=== PATIENT | female | born 1950 | race Caucasian/White ===

== ENCOUNTER 2017-05-01 09:30 | Inpatient (IN) | payer OTHER ==
[2017-04-07 11:18] VITALS: BMI 34.0
--- NOTE | 2017-04-07 11:56 | PAT Medication Instructions ---
Service Date Apr 07, 2017. Current Home Medication List Albuterol Sulfate (Proair Respiclick), 2 PUFF INH Q4 PRN for SOB/Wheezing Alendronate/Cholecalciferol (Fosamax+D 70MG/2800 Iu), 1 TABLET PO WK Aspirin (Aspirin Ec), 81 MG PO QAM Calcium/Vitamin D (Os-Raymond 500 Plus D), 1 TAB PO QAM Fish Oil (Zoe-3), 1 CAP PO QAM Fluticasone Propionate (Nasal) (Flonase Allergy Relief), 1 SPRAY SERAFIN UD PRN for PRN Ntthiecmxam-Rzthnooroqy-Etq C- (Glucosamine Chondroitin), 1 CAP PO QAM Multivitamin (Multivitamin), 1 TAB PO QAM Vitamin E (E-400), 1 CAP PO QAM [Premarin Vaginal], 1 DOSE PV 3XWK Medication Instructions For Your Scheduled Surgery -Continue as directed: Alendronate/Cholecalciferol (Fosamax+D 70MG/2800 Iu), 1 TABLET PO WK - Hold the following medications 2 weeks prior to surgery: Vitamin E (E-400), 1 CAP PO QAM Jbiqklxdgjn-Aungkvsbhed-Iua C- (Glucosamine Chondroitin), 1 CAP PO QAM Fish Oil (Zoe-3), 1 CAP PO QAM - Hold the following medications 24 hours prior to surgery: [Premarin Vaginal], 1 DOSE PV 3XWK - Hold the following medications the morning of surgery: Calcium/Vitamin D (Os-Raymond 500 Plus D), 1 TAB PO QAM Multivitamin (Multivitamin), 1 TAB PO QAM - Take the following medications the morning of surgery with a sip of water: Aspirin (Aspirin Ec), 81 MG PO QAM Fluticasone Propionate (Nasal) (Flonase Allergy Relief), 1 SPRAY SERAFIN UD PRN for PRN Albuterol Sulfate (Proair Respiclick), 2 PUFF INH Q4 PRN for SOB/Wheezing - Take the following medications as scheduled the night before surgery: Fluticasone Propionate (Nasal) (Flonase Allergy Relief), 1 SPRAY SERAFIN UD PRN for PRN Albuterol Sulfate (Proair Respiclick), 2 PUFF INH Q4 PRN for SOB/Wheezing If you have any questions please call us at [phone] or [phone] or [phone]
[2017-04-07 13:03] LABS: BASO % 0.4 %; BASO ABS # 0.02 K/uL (0-0.2); EOS % 2.9 %; EOS ABS # 0.13 K/uL (0-0.5); HEMATOCRIT 39.8 % (37-47); HEMOGLOBIN 14.1 g/dL (12.0-16.0); LYMPH % 31.6 %; LYMPH ABS # 1.42 K/uL (1.2-3.4); MEAN CELL VOLUME 88.6 fL (80-100); MEAN CORPUSCULAR HEMOGLOBIN 31.4 pg (25-34); MEAN CORPUSCULAR HGB CONC 35.4 g/dl (32-36); MEAN PLATELET VOLUME 9.8 fL (7.4-10.4); MONO % 8.7 %; MONO ABS # 0.39 K/uL (0.11-0.59); NEUT % 56.4 %; NEUT ABS # 2.53 K/uL (1.4-6.5); PLATELET COUNT 141 K/uL (130-400); RED CELL DISTRIBUTION WIDTH CV 12.7 % (11.5-14.5); WHITE BLOOD COUNT 4.49 K/uL (4.8-10.8)
[2017-04-07 13:21] LABS: PTT PATIENT 24.9 SECONDS (21.0-31.0)
[2017-04-07 13:29] LABS: HEMOGLOBIN A1C 5.6 % (4.5-5.6)
[2017-04-07 14:00] LABS: ALBUMIN 3.8 gm/dl (3.4-5.0); CALCIUM 9.7 mg/dl (8.5-10.1); CREATININE 0.85 mg/dl (0.60-1.20); POTASSIUM 4.2 mmol/L (3.5-5.1)
--- NOTE | 2017-04-28 08:59 | HISTORY & PHYSICAL EXAMINATION ---
DATE OF ADMISSION: 05/01/2017 CHIEF COMPLAINT: Right knee pain. HISTORY OF PRESENT ILLNESS: The patient is a 67-year-old female approximately 15 years status post right total knee arthroplasty by an outside physician. She presented to our office for evaluation of increasing right knee pain and disability. X-rays were suspicious for probable loosening, particularly of the femoral component. Blood work and a bone scan was ordered. The blood work was negative for infection. The bone scan is suggestive of aseptic loosening. She is now scheduled for revision right total knee arthroplasty. PAST MEDICAL HISTORY: Acid reflux. PAST SURGICAL HISTORY: Right knee as above, cholecystectomy, bilateral shoulder surgery, D&C, appendectomy. MEDICATIONS: Simvastatin 20 mg daily, Actonel 35 mg weekly, multivitamin daily, aspirin 81 mg daily, calcium plus D daily, Meloxicam 7.5 mg daily, Premarin 0.625 mg daily, glucosamine daily, probiotic daily, timolol maleate 0.5% eyedrops, fish oil 1000 mg daily, Betimol 0.5% ophthalmic solution both eyes once daily, Flagyl 500 mg q.8 hours. ALLERGIES: TRAMADOL, PROPOXYPHENE, SCALLOPS. SOCIAL HISTORY AND REVIEW OF SYSTEMS: Noncontributory. PHYSICAL EXAMINATION: GENERAL: Well-nourished, well-developed elderly female who appears stated age. HEENT: Normocephalic, atraumatic, extraocular movements intact, oropharynx pink and moist. NECK: Supple without adenopathy. LUNGS: Clear to auscultation bilaterally. HEART: Regular rate and rhythm. ABDOMEN: Soft, nontender, nondistended. EXTREMITIES: The upper extremities within normal limits. The right knee is neutrally aligned. She has a well-healed midline incision from her previous arthroplasty. Her range of motion is from 0-125 degrees. X-RAYS: X-rays were reviewed. She has DePuy type knee in place. It appears well aligned. There is a lucency about the femoral component, particularly on the lateral view. The patella is unresurfaced. ASSESSMENT: Aseptic loosening, right total knee arthroplasty. PLAN: Risks versus benefits were discussed. Consent was obtained. The patient's primary care physician is Dr. Ace from [place]. Will proceed with right knee revision total knee arthroplasty upon preoperative workup and medical clearance.
[~2017-05-01] VITALS: Ht 165.1 cm; Wt 93.8 kg
[2017-05-01] VITALS (8 sets, daily range): BP systolic 132–173; BP diastolic 56–85; PULSE 44–58; TEMP 36.3–36.8; O2SAT 95–100; Ht 165.1 cm; Wt 93.8 kg
[2017-05-01] MEDS: TRANEXAMIC ACID INJ 1,000 MG x 2 Bags IV SCH ×4 (06:30→11:30)
[~2017-05-01 09:30] MED LIST: ACETAMINOPHEN 500 MG TAB PO SCH; ALBU18002 INH; ASPI81TA28 PO; BUPIVACAINE 0.5 % 5 MG/1 ML PF 10ML VIAL ONE; CALC500C70 PO; CEFAZOLIN 2000MG IV PUSH 15 ML IV SCH; CeleBREX 200 MG CAP PO SCH; DEXAMETHASONE 4 MG TAB PO SCH; FAMOTIDINE 20 MG TAB PO SCH; FLUT0.15 NAE; FSMD/70 PO; GABAPENTIN 300 MG CAP PO SCH; GLUC1CAP35 PO; LACTATED RINGER'S 1000ML 1,000 ML IV SCH; LACTATED RINGER'S 1000ML 500 ML IV SCH; METOCLOPRAMIDE HCL 10 MG TAB PO SCH; MULT-506 PO; OMEG10007 PO; OXYCODONE HCL 10 MG TABCR (OXYCONTIN) PO SCH; PREMARIN VAGINAL PV; ROPIVACAINE 5MG/ML 30 ML 150 MG, BUPIVACAINE 0.5% MPF INJ 30 ML, EpINEphrine HCL INJ 0.... INFIL SCH; VITACAP37 PO
--- NOTE | 2017-05-01 10:05 | History & Physical Bridge Note ---
H&P Re-Evaluation Bridge Note: I have examined the patient, reviewed the History & Physical and in the interval since the performance of the History & Physical I have noted the following changes of clinical significance: No changes noted
[2017-05-01] MEDS ORDERED: TIMOLOL EYE OPB (10:14)
[2017-05-01] MEDS ORDERED: LIDOCAINE HCL 2% 2 ML VIAL (20MG/ML) ONE (10:31)
[2017-05-01] MEDS ORDERED: PROPOFOL IV EMULSION 10 MG/ML 20 ML VIAL IV ONE (10:31)
[2017-05-01] MEDS ORDERED: FENTANYL CITRATE INJ 50 MCG/1 ML 2 ML VIAL ONE (10:31)
[2017-05-01] MEDS ORDERED: MIDAZOLAM HCL 1 MG/ML 2ML VIAL ONE (10:31)
[2017-05-01] MEDS ORDERED: BACITRACIN 50000 UNIT VIAL ONE (11:29)
[2017-05-01] MEDS ORDERED: ORTHO JOINT ANESTHETIC ONE (11:29)
[2017-05-01] MEDS ORDERED: POVIDONE-IODINE OP SOLN 30 ML BTL ONE (11:29)
[2017-05-01] MEDS ORDERED: ATROPINE SULFATE 0.1 MG/ML 5ML SYR IV PRN (11:30)
[2017-05-01] MEDS ORDERED: FENTANYL CITRATE INJ 50 MCG/1 ML 2 ML VIAL IV PRN (11:30)
[2017-05-01] MEDS ORDERED: ONDANSETRON INJ 2 MG/ML 2 ML VIAL IV PRN ×2 (11:30→14:30)
[2017-05-01] MEDS ORDERED: EpHEDrine SULFATE INJ 50 MG/ML AMP IV PRN (11:30)
[2017-05-01] MEDS ORDERED: MoRPHine SULFATE 2 MG/ML CARP IV PRN (14:30)
[2017-05-01] MEDS ORDERED: MAGNESIUM HYDROXIDE SUSP 30 ML UDC PO PRN (14:30)
[2017-05-01] MEDS ORDERED: BISACODYL 10 MG SUPP PR PRN (14:30)
[2017-05-01] MEDS ORDERED: OXYCODONE HCL IR 5 MG TAB (IMMEDIATE RELEASE) PO PRN (14:30)
[2017-05-01] MEDS ORDERED: ALBUTEROL HFA 8 GM INHALER INH PRN (14:30)
[2017-05-01] MEDS ORDERED: FLUTICASONE PROPIONATE NA SPR 16 GM BTL NAE PRN (14:30)
[2017-05-01] MEDS ORDERED: ALUMINUM/MAGNESIUM/SIMETH (MAALOX MAX) 30 ML UDC PO PRN (14:30)
--- NOTE | 2017-05-01 14:57 | DIAGNOSTIC IMAGING REPORT ---
TWO VIEWS RIGHT KNEE CLINICAL HISTORY: Postoperative examination. FINDINGS: AP and crosstable lateral portable views of the right knee are obtained. A right knee arthroplasty is in near anatomic alignment. There has been undersurface remodeling of the patella. There are long tibial and femoral stems. No acute fracture is seen. There are expected postoperative changes around the knee including skin clips, a surgical drain, soft tissue edema, and subcutaneous gas. IMPRESSION: Expected postoperative changes status post right knee arthroplasty. No acute fracture is seen. Electronically signed by: Grant Pederson M.D. 05/01/2017 2:56 PM Dictated Date/Time: 05/01/2017 2:56 PM
--- NOTE | 2017-05-01 14:59 | Anesthesiology Progress Note ---
Anesthesia Post Op Note Date & Time May 01, 2017 at 14:58 Vital Signs Pain Intensity: 0 Vital Signs Past 12 Hours Date Time Temp Pulse Resp B/P (MAP) Pulse Ox O2 Delivery O2 Flow Rate FiO2 05/01/17 14:49 44 16 96 05/01/17 14:49 44 16 05/01/17 14:48 126/60 05/01/17 14:44 43 16 95 05/01/17 14:44 46 16 05/01/17 14:43 137/53 05/01/17 14:39 49 15 05/01/17 14:39 50 15 133/57 97 05/01/17 14:34 49 18 141/59 98 05/01/17 14:34 49 18 05/01/17 14:29 51 22 05/01/17 14:29 51 22 97 05/01/17 14:28 158/67 05/01/17 14:27 153/72 05/01/17 14:24 36.0 54 18 153/72 100 Room Air 05/01/17 10:10 36.4 44 20 172/68 98 Room Air 173/56 Notes Mental Status: alert / awake / arousable, participated in evaluation Pt Amnestic to Procedure: Yes Nausea / Vomiting: adequately controlled Pain: adequately controlled Airway Patency, RR, SpO2: stable & adequate BP & HR: stable & adequate Hydration State: stable & adequate Neuraxial Anesthesia: was administered, sensory block is resolving Anesthetic Complications: no major complications apparent
--- NOTE | 2017-05-01 15:22 | OPERATIVE REPORT ---
DATE OF OPERATION: 05/01/2017 PREOPERATIVE DIAGNOSIS: Aseptic loosening, right total knee. POSTOPERATIVE DIAGNOSIS: Aseptic loosening, right total knee. PROCEDURE: Revision right total knee with patellar resurfacing. SURGEON: Dr. Jha. LIBRARY CLERK TALKING BOOKS: JOYCE Chahal ANESTHESIA: Spinal. COMPLICATIONS: None. Mr. Mcdaniel was critical through all portions of the case including positioning, prepping, draping, surgical technologist, wound closure and dressing application. DESCRIPTION OF PROCEDURE: First, the patient's right leg was prepped and draped in usual sterile manner. Limb was exsanguinated with an Esmarch bandage and tourniquet was inflated to 350 mmHg. A previously made skin incision was opened longitudinally and extended proximally roughly for additional centimeters. A median parapatellar incision was made and clear synovial fluid was noted. There was some hemosiderin pigmentation noted in the synovium. A complete synovectomy was carried out. A patella baja was noted with bony deposition within the substance of the patellar tendon. This was removed using electrocautery. A lateral snip was deemed necessary to get adequate exposure and the first patellar cut was carried out also to help with exposure using the oscillating saw. A lateral release was carried out to further help mobilize the patella. The patella could be subluxed into the lateral gutter as the knee was flexed and a flexible osteotome was used to disengage the femoral component from the underlying bone. Some soft tissue from the bone cement interface was sent to the lab where it showed no signs of acute inflammation. Next, attention was then turned to the tibia where using a combination of reciprocating saw and oscillating saw, the tibial component was disengaged. First, the rotating ____ was cut and the majority of the articular surface was able to be removed. Following this, the tibia was disengaged from the tibia. No bone loss was experienced. Sequential reamings were begun first with intramedullary drill and then reamers. The femoral side was reamed up to size 14 and the tibial to a size 12. The proximal tibia was prepared first with a cleanup cut and excision of scar from the posterior aspect of the knee. Following this, the 12 reamer was then again placed and an 8-mm offset laterally was necessary to give a good coverage of the tibia. A 4 tibial component was chosen. The drill and a punch and a mallet was used to further prepare the tibia and the trial tibia was assembled on the back table and impacted in position. The tibial rested flat against the tibial component. Next, attention was once again turned to the femur where a size 4 femoral component was chosen the size to be used. A 5-mm distal augments were going to be needed and a cleanup cut using the reciprocating saw and oscillating saw were used to prepare the distal end of the femur. Additional chamfer cuts were made to further fit the contour of the [place] femoral component. Size 13 poly was chosen the size to be used. The trial femoral component was placed and again a size 13 gave good reproduction of soft tissue tension in both flexion and extension. Posterior stabilized option was chosen as good collaterals existed. Trials were all removed. The patella was then prepared using the patellar drill and a 33 poly patella was chosen the size to be used. With a towel clip provisionally closing the extensor mechanism, the patella tracked nicely. All trials were removed. The knee was thoroughly irrigated with pulsatile irrigation. Ortho mix was injected posteriorly as well as in the medial and lateral gutters and the femoral and tibial components were assembled on the back table. Following assembly of all components, cement was mixed and 3 packs of gentamicin cement were utilized. First, the femoral component was impacted into position. All excess cement was removed. The femur was protected with a lap sponge where blunt Cesar was used to present the tibia for cementation and the tibial component was cemented into position. All excess cement was used here as well. The tibial poly was placed. The knee was held in extension while the cement hardened and the patella was then cemented in position. Following this and hardening of the cement, the patellar clamp was removed. The Betadine soak was utilized and pulsatile irrigation was used to finally cleanse the knee. Hemovac drain was placed and the extensor mechanism was closed using #1 Vicryl pnrepi-qc-hleol sutures. A lateral snip was closed as well. The subcutaneous tissue was closed using 0 Dexon. Skin was closed with ZipLine. Sterile dressing of Silverlon, sterile Webril and double length Dennis was applied. The patient tolerated the procedure well. I attest to the content of the Intraoperative Record and any orders documented therein. Any exception s are noted below.
[2017-05-01] MEDS: D5W AND 1/2NSS + 20MEQ KCL 1,000 ML IV SCH (16:54)
[2017-05-01] MEDS: FERROUS GLUCONATE 324 MG TAB PO SCH (18:15)
[2017-05-01] MEDS: ACETAMINOPHEN 500 MG TAB PO SCH (18:16)
[2017-05-01] MEDS: CeleBREX 200 MG CAP PO SCH (20:25)
[2017-05-01] MEDS: CEFAZOLIN IV 2,000 MG in SYRINGE 0 ML IV SCH (20:25)
[2017-05-01] MEDS: DOCUSATE SODIUM 100 MG CAP PO SCH (20:26)
[2017-05-01] MEDS: SENNA 8.6 MG TAB PO SCH (20:26)
[2017-05-01] MEDS: ASPIRIN 81 MG ECTAB PO SCH (20:26)
[2017-05-02] MEDS: ACETAMINOPHEN 500 MG TAB PO SCH ×3 (01:49→17:42)
[2017-05-02] MEDS: D5W AND 1/2NSS + 20MEQ KCL 1,000 ML IV SCH ×2 (01:50→12:04)
[2017-05-02 03:45] VITALS: BP 94/54; PULSE 48; TEMP 36.5; O2SAT 97
[2017-05-02] MEDS: CEFAZOLIN IV 2,000 MG in SYRINGE 0 ML IV SCH (04:24)
[2017-05-02 06:39] LABS: HEMOGLOBIN 11.7 g/dL (12.0-16.0); MEAN CELL VOLUME 86.8 fL (80-100); MEAN CORPUSCULAR HEMOGLOBIN 30.8 pg (25-34); MEAN CORPUSCULAR HGB CONC 35.5 g/dl (32-36); MEAN PLATELET VOLUME 9.8 fL (7.4-10.4); PLATELET COUNT 140 K/uL (130-400); RED CELL DISTRIBUTION WIDTH CV 12.9 % (11.5-14.5); RED CELL DISTRIBUTION WIDTH SD 41.6 fL (36.4-46.3); WHITE BLOOD COUNT 14.17 K/uL (4.8-10.8)
--- NOTE | 2017-05-02 06:49 | Orthopedic Progress Note ---
Orthopedic Progress Note Date of Service May 02, 2017. Subjective Post OP Day: 1 Reports: feeling well Objective N/V intact, dressing C/D/I (Hemovac and Prevena in place), toes mobile Date Time Temp Pulse Resp B/P (MAP) Pulse Ox O2 Delivery O2 Flow Rate FiO2 05/02/17 03:45 36.5 48 16 94/54 (67) 97 Room Air 05/02/17 00:05 Room Air 05/01/17 23:00 36.8 51 16 136/85 (102) 97 Room Air 05/01/17 19:23 36.3 51 16 135/78 (97) 95 Room Air 05/01/17 19:05 Room Air 05/01/17 18:33 36.3 55 18 134/76 (95) 99 Nasal Cannula 2.0 05/01/17 17:36 36.4 52 18 132/76 (94) 99 Nasal Cannula 2.0 05/01/17 16:43 46 18 145/75 (98) 05/01/17 16:10 36.4 44 18 152/77 (102) 100 Nasal Cannula 2.0 05/01/17 15:30 36.4 58 16 143/77 (99) 97 Nasal Cannula 2.0 05/01/17 15:30 97 Nasal Cannula 05/01/17 15:30 Nasal Cannula 2.0 05/01/17 15:19 45 17 98 05/01/17 15:19 45 17 05/01/17 15:18 125/49 05/01/17 15:14 42 16 98 05/01/17 15:14 43 16 05/01/17 15:13 126/55 05/01/17 15:09 43 17 98 05/01/17 15:09 43 17 05/01/17 15:08 130/58 05/01/17 15:04 46 15 05/01/17 15:04 44 15 93 05/01/17 15:03 122/54 05/01/17 15:01 36.3 48 21 122/54 94 Room Air 05/01/17 15:01 43 14 93 05/01/17 15:01 43 14 05/01/17 14:58 124/58 05/01/17 14:56 43 16 92 05/01/17 14:56 43 16 05/01/17 14:55 43 13 05/01/17 14:55 42 13 95 05/01/17 14:53 127/57 05/01/17 14:50 47 16 05/01/17 14:50 46 16 96 05/01/17 14:49 44 16 96 05/01/17 14:49 44 16 05/01/17 14:48 126/60 05/01/17 14:44 43 16 95 05/01/17 14:44 46 16 05/01/17 14:43 137/53 05/01/17 14:39 49 15 05/01/17 14:39 50 15 133/57 97 05/01/17 14:34 49 18 141/59 98 05/01/17 14:34 49 18 05/01/17 14:29 51 22 05/01/17 14:29 51 22 97 05/01/17 14:28 158/67 05/01/17 14:27 153/72 05/01/17 14:24 36.0 54 18 153/72 100 Room Air 05/01/17 10:10 36.4 44 20 172/68 98 Room Air 173/56 Laboratory Results 24 Hours: Test 05/02/17 05:59 Hematocrit 33.0 % Hemoglobin 11.7 g/dL Assessment & Plan Assessment: 67 yo female stable POD #1 s/p right TKA revision Plan: 1. Med management 2. DVT prophylaxis- ASA, SCDs 3. PT/OT 4. D/C planning- home w/ HH
[2017-05-02 07:13] LABS: CALCIUM 7.7 mg/dl (8.5-10.1); CREATININE 1.02 mg/dl (0.60-1.20); POTASSIUM 4.2 mmol/L (3.5-5.1)
[2017-05-02 07:26] VITALS: BP 140/66; PULSE 53; TEMP 36.4; O2SAT 98
--- NOTE | 2017-05-02 07:53 | Anesthesiology Progress Note ---
Anesthesia Post Op Note Date & Time May 02, 2017 at 07:52 Vital Signs Pain Intensity: 0.0 Vital Signs Past 12 Hours Date Time Temp Pulse Resp B/P (MAP) Pulse Ox O2 Delivery O2 Flow Rate FiO2 05/02/17 07:26 36.4 53 18 140/66 (90) 98 Room Air 05/02/17 03:45 36.5 48 16 94/54 (67) 97 Room Air 05/02/17 00:05 Room Air 05/01/17 23:00 36.8 51 16 136/85 (102) 97 Room Air Notes Mental Status: alert / awake / arousable, participated in evaluation Pt Amnestic to Procedure: Yes Nausea / Vomiting: adequately controlled Pain: adequately controlled Airway Patency, RR, SpO2: stable & adequate BP & HR: stable & adequate Hydration State: stable & adequate Neuraxial Anesthesia: was administered, sensory block resolved Anesthetic Complications: no major complications apparent
[2017-05-02] MEDS: DOCUSATE SODIUM 100 MG CAP PO SCH ×2 (08:34→21:43)
[2017-05-02] MEDS: ASPIRIN 81 MG ECTAB PO SCH ×2 (08:34→21:44)
[2017-05-02] MEDS: FERROUS GLUCONATE 324 MG TAB PO SCH ×3 (08:34→17:30)
[2017-05-02] MEDS: MULTIVITAMIN TAB PO SCH (08:34)
[2017-05-02] MEDS: CeleBREX 200 MG CAP PO SCH ×2 (08:35→21:44)
[2017-05-02 12:24] VITALS: BP 156/76; PULSE 45; TEMP 36.5; O2SAT 99
[2017-05-02 15:46] VITALS: BP 160/72; PULSE 52; TEMP 36.6; O2SAT 99
[2017-05-02] MEDS: SENNA 8.6 MG TAB PO SCH (21:43)
[2017-05-02 23:15] VITALS: BP 105/65; PULSE 59; TEMP 36.8; O2SAT 98
[2017-05-03] MEDS: ACETAMINOPHEN 500 MG TAB PO SCH ×2 (02:36→09:52)
--- NOTE | 2017-05-03 07:22 | Orthopedic Progress Note ---
Orthopedic Progress Note Date of Service May 03, 2017. Subjective Post OP Day: 2 Reports: feeling well Additional Notes: Notified by PT yesterday afternoon that pt felt a "pop" in her knee. This AM pt denies significant pain or disability, able to do SLR Objective calves soft nontender, N/V intact, dressing C/D/I (Prevena in place) Pt able to do SLR and flex/extend knee appropriately Date Time Temp Pulse Resp B/P (MAP) Pulse Ox O2 Delivery O2 Flow Rate FiO2 05/03/17 00:10 Room Air 05/02/17 23:15 36.8 59 16 105/65 (78) 98 Room Air 05/02/17 15:46 36.6 52 18 160/72 (101) 99 Room Air 05/02/17 15:25 Room Air 05/02/17 12:24 36.5 45 16 156/76 (102) 99 Room Air 05/02/17 07:26 36.4 53 18 140/66 (90) 98 Room Air Assessment & Plan Assessment: 67 yo female stable POD #2 s/p right TKA revision Plan: 1. Med management 2. DVT prophylaxis- ASA, SCDs 3. PT/OT 4. D/C planning- home w/ HH
[2017-05-03] MEDS ORDERED: CLB200 PO (07:24)
[2017-05-03] MEDS ORDERED: ONDA8TAB12 PO (07:24)
[2017-05-03] MEDS ORDERED: ASPEC81 PO (07:24)
[2017-05-03] MEDS ORDERED: ACET-24 PO (07:24)
[2017-05-03] MEDS ORDERED: RXC5 PO (07:24)
--- NOTE | 2017-05-03 07:25 | Discharge Instructions ---
Discharge Instructions Date of Service May 03, 2017. Admission Reason for Admission: Right Knee Osteoarthritis Discharge Discharge Diagnosis / Problem: Loosening right total knee arthroplasty Discharge Goals Goal(s): Decrease discomfort, Improve function Activity Recommendations Activity Limitations: as noted below Weightbearing Status: Right weightbearing (as tolerated) . Instructions / Follow-Up Instructions / Follow-Up ACTIVITY RECOMMENDATIONS: SELF CARE INSTRUCTIONS AFTER TOTAL KNEE REPLACEMENT A. You may need to continue a physical therapy program after discharge from the hospital. There are several options available to you. Your doctor will assist you in selecting the best one for you. 1. An out-patient facility 2 to 3 times a week for therapy or home therapy. 2. Continue working on all exercises taught to you in the hospital. Your goals should be to increase bending of your knee to 90 degrees and beyond and to fully straighten your knee. B. You may progress at your own pace from walking with a walker or crutches to a cane; then to no assistive devices. C. Make walking a part of your daily routine. Be up as much as comfortable with rest periods throughout the day. Rest with leg elevation is very important. Use the ice wrap frequently for the first 3-4 weeks. D. There are no restrictions on activities. You may ride in a car, shop, participate in audit analyst and all social activities. E. Wear the long elastic stockings (CASSANDRA hose) 20 hours a day for 2 weeks after surgery. They can be removed several times a day for laundering and for a bath. F. You may shower, no tub baths until cleared by your doctor. SPECIAL CARE INSTRUCTIONS: VERY IMPORTANT TO READ AND REVIEW A. There are a few signs you need to watch for after you are home. Call [facility] if you notice any of the followin. Increased severe knee pain. Some pain is expected especially when you exercise. 2. Increased swelling in your leg or knee; pain or swelling of the calf muscle in either lower leg. 3. Any fluid drainage from the incision. 4. Shortness of breath or chest pain. B. Please call [facility] at if you have any concerns or questions about your operation or recovery. The doctor or his nurse will return your call promptly. C. You must take antibiotics before dental work, bladder, bowel or other surgery. Your doctor will provide you with a permanent care to carry describing this precaution. IMPORTANT: * REMEMBER TO TAKE ASPIRIN, 81 MG, TWICE DAILY FOR 4 WEEKS UNLESS OTHERWISE DIRECTED. THIS IS YOUR BLOOD THINNER. * HIGH RISK PATIENTS MAY BE PRESCRIBED A STRONGER BLOOD THINNER. THIS WILL BE PROVIDED AT DISCHARGE. * CALL IF INCREASED PAIN, REDNESS, DRAINAGE OR FEVER GREATER THAT 101. * WEAR CASSANDRA HOSE 20 HOURS PER DAY FOR 2 WEEKS. Prevena- This is a large suction dressing covering your incision. This will help pull any excess drainage from the wound and allow your incision to heal properly. You may shower with this if you can keep the unit outside of the shower. If any bleeding or leakage is noted please call your doctor's office. This will remain on your incision for 7 days and then should be removed. This can be done yourself or by the home nursing staff if applicable. The entire unit is disposable once removed. Once removed, keep incision clean and dry. If redness or drainage is noted, please call your surgeon. FOLLOW UP VISIT: If appointment is not already scheduled: Please call [facility] to make a follow-up appointment for 2 weeks after your surgery at . Current Hospital Diet Patient's current hospital diet: Regular Diet Discharge Diet Recommended Diet: Regular Diet Procedures Procedures Performed: Right total knee revision, Edgar, Cemented Pending Studies Studies pending at discharge: no Laboratory Results Hemoglobin A1c Test 04/07/17 12:07 Range/Units Estimated Average Glucose 114 mg/dl Hemoglobin A1c 5.6 4.5-5.6 % Medical Emergencies . Who to Call and When: Medical Emergencies: If at any time you feel your situation is an emergency, please call 911 immediately. . Non-Emergent Contact Non-Emergency issues call your: Surgeon Call Non-Emergent contact if: temperature is above 101.5, your pain is not controlled, wound has increased drainage, wound has increased redness . "Provider Documentation" section prepared by Edwin Bhagat PA-C. . [place] Drug Monitoring Program Search Results: patient reviewed within database, no issues identified
[2017-05-03 07:41] VITALS: BP 110/70; PULSE 50; TEMP 36.3; O2SAT 97
[2017-05-03 07:56] VITALS: BP 110/70; PULSE 50; TEMP 36.3; O2SAT 97
[2017-05-03 08:13] VITALS: O2SAT 97
[2017-05-03] MEDS: MULTIVITAMIN TAB PO SCH (08:29)
[2017-05-03] MEDS: FERROUS GLUCONATE 324 MG TAB PO SCH (08:29)
[2017-05-03] MEDS: DOCUSATE SODIUM 100 MG CAP PO SCH (08:29)
[2017-05-03] MEDS: ASPIRIN 81 MG ECTAB PO SCH (08:47)
[2017-05-03] MEDS: CeleBREX 200 MG CAP PO SCH (08:47)
[2017-05-03] MEDS ORDERED: TIMOLOL MALEATE 0.5% OP SOLN 5 ML BTL OPB SCH (09:00)
== END 2017-05-03 10:52 | disposition home health service (06) | DRG 468 ==
LOC: C.ACU 09:30 → C.3E 10:01 → ENRESERV 14:39
PROC: 0SWC0JC Revision of Synthetic Substitute in Right Knee Joint, Patellar Surface, Open Approach (ICD-10-PCS; principal; 2017-05-01 12:00)
DX: T84.032A Mechanical loosening of internal right knee prosthetic joint, initial encounter (principal); Z90.49 Acquired absence of other specified parts of digestive tract; Z96.651 Presence of right artificial knee joint; Z79.82 Long term (current) use of aspirin; Y82.8 Other medical devices associated with adverse incidents